=== PATIENT | female | born 1980 | race Caucasian/White ===

== ENCOUNTER 2018-07-25 07:56 | Emergency (ER) | payer BC ==
[~2018-07-25 07:56] MED LIST: ALBUTEROL0.83 MG/ML IH; AMOXICILLIN 50500 MG PO; ATROVENT I0.2 MG/1 M IH; CELEXA40 MG PO; CLONAZEPAM1 M1 PO; CLONAZEPAM1 MG PO; METFORMIN1000 MG PO; MUCINEX 60600 MG/TA1 PO; NO HOME MEDICATIONS; OMEPRAZOLE20 MG PO; PREDNISONE10 M1 PO; SIMVASTATIN20 MG PO
[2018-07-25 08:47] LABS: EOS # 0.2 (0.04-0.40); EOS % 4.3 % (1.0-5.0); HEMATOCRIT 36.2 % (37.0-47.0); MEAN CELL VOLUME 76 fl (78-100); MEAN CORPUSCULAR HGB CONC 30 g/dL (33-37); MEAN PLATELET VOLUME 10.3 fl (7.4-10.4); MONO # 0.6 (0.20-0.80); NEU # 3.8 (1.40-6.50); PLATELET COUNT 272 K/mm3 (130-400); RED BLOOD COUNT 4.74 M/mm3 (4.10-5.30); RED CELL DISTRIBUTION WIDTH 16.1 % (11.5-14.5); WHITE BLOOD COUNT 5.6 K/mm3 (4.8-10.8)
[2018-07-25 08:57] LABS: MEAN CORPUSCULAR HEMOGLOBIN 23 pg (27-31)
[2018-07-25 09:06] LABS: STREP SCREEN NEGATIVE (NEGATIVE)
[2018-07-25 09:06] LABS: ALBUMIN 4.3 g/dL (3.5-5.0); CALCIUM 9.1 mg/dL (8.4-10.2); POTASSIUM 3.6 mmol/L (3.6-5.0); TOTAL BILIRUBIN 0.7 mg/dL (0.2-1.3); TOTAL PROTEIN 7.2 g/dL (6.3-8.2)
[2018-07-25] MEDS ORDERED: RANITIDINE HCL300 M1 PO (09:29)
[2018-07-25] MEDS ORDERED: METFORMIN ER500 MG PO (09:30)
[2018-07-25] MEDS ORDERED: NATURAL IRON65 MG (09:31)
[2018-07-25] MEDS ORDERED: PREDNISONE20 M1 PO (09:32)
[2018-07-25] MEDS ORDERED: AUGMENTIN 875-1 EAC1 PO (09:32)
[2018-07-25 09:55] VITALS: BP 164/83
== END 2018-07-25 09:58 | disposition home or self-care (01) ==
LOC: ED 07:56
PROVIDERS: Nurse Practitioner Primary Care
DX: J45.901 Unspecified asthma with (acute) exacerbation (principal); J06.9 Acute upper respiratory infection, unspecified; B96.89 Other specified bacterial agents as the cause of diseases classified elsewhere; Z79.899 Other long term (current) drug therapy; F41.9 Anxiety disorder, unspecified; F41.0 Panic disorder [episodic paroxysmal anxiety]
CPT/HCPCS: J1885; J2930

== ENCOUNTER 2020-09-12 03:37 | Emergency (ER) | payer BC ==
[~2020-09-12 03:37] MED LIST changes: +AUGMENTIN 875-1 EAC1 PO; +METFORMIN ER500 MG PO; +NATURAL IRON65 MG; +PREDNISONE20 M1 PO; +RANITIDINE HCL300 M1 PO
[2020-09-12] MEDS ORDERED: SIMVASTATIN20 M1 PO (03:49)
[2020-09-12] MEDS ORDERED: PROAIR HFA0.09 MG/AC IH (03:50)
[2020-09-12 04:51] LABS: EOS # 0.2 (0.04-0.40); EOS % 2.7 % (1.0-5.0); HEMATOCRIT 41.8 % (37.0-47.0); HEMOGLOBIN 13.3 g/dL (12.5-16.0); LYMPH# 1.7 (1.50-4.00); MEAN CELL VOLUME 86 fl (78-100); MEAN CORPUSCULAR HEMOGLOBIN 27 pg (27-31); MEAN CORPUSCULAR HGB CONC 32 g/dL (33-37); MEAN PLATELET VOLUME 9.8 fl (7.4-10.4); MONO # 0.7 (0.20-0.80); NEU # 5.2 (1.40-6.50); PLATELET COUNT 267 K/mm3 (130-400); RED BLOOD COUNT 4.86 M/mm3 (4.10-5.30); RED CELL DISTRIBUTION WIDTH 14.8 % (11.5-14.5); WHITE BLOOD COUNT 7.8 K/mm3 (4.8-10.8)
[2020-09-12 05:04] LABS: POTASSIUM 3.8 mmol/L (3.5-5.1); SODIUM 140 mmol/L (136-145)
[2020-09-12 05:06] LABS: CALCIUM 8.8 mg/dL (8.3-10.5); GLUCOSE 114 mg/dL (65-105)
[2020-09-12 05:07] LABS: CARBON DIOXIDE 25 mmol/L (22-29)
[2020-09-12 05:08] LABS: D-DIMER 0.49 mg/L FEU (0.15-0.50)
[2020-09-12 05:19] LABS: TROPONIN-I < 0.03 ng/mL (<0.030)
[2020-09-12] MEDS ORDERED: ZITHROMAX Z PA250 MG PO (05:19)
[2020-09-12] MEDS ORDERED: PREDNISONE20 M1 PO (05:19)
[2020-09-12 05:25] VITALS: BP 151/95
== END 2020-09-12 05:26 | disposition home or self-care (01) ==
LOC: ED 03:37
PROVIDERS: Physician Assistant
DX: J45.909 Unspecified asthma, uncomplicated (principal); F41.9 Anxiety disorder, unspecified; E78.5 Hyperlipidemia, unspecified; Z79.51 Long term (current) use of inhaled steroids; Z79.84 Long term (current) use of oral hypoglycemic drugs; Z79.899 Other long term (current) drug therapy

== ENCOUNTER 2021-05-04 09:18 | Emergency (ER) | payer BC ==
[~2021-05-04] VITALS: Ht 160 cm; Wt 129.5 kg
[~2021-05-04 09:18] MED LIST changes: +PROAIR HFA0.09 MG/AC IH; +SIMVASTATIN40 M1 PO; +ZITHROMAX Z PA250 MG PO
[2021-05-04] MEDS ORDERED: SINGULAIR 110 MG/TAB PO (09:32)
[2021-05-04] MEDS ORDERED: ESOMEPRAZOLE MA40 M1 PO (09:32)
[2021-05-04] MEDS ORDERED: SYMBICORT1 AE3 IH (09:33)
[2021-05-04] MEDS ORDERED: CEPHALEXIN250 MG PO (10:29)
[2021-05-04 10:37] VITALS: BP 144/94
== END 2021-05-04 10:38 | disposition home or self-care (01) ==
LOC: ED 09:18
DX: H66.91 Otitis media, unspecified, right ear (principal); K13.79 Other lesions of oral mucosa; J45.909 Unspecified asthma, uncomplicated; K21.9 Gastro-esophageal reflux disease without esophagitis; Z79.51 Long term (current) use of inhaled steroids; Z79.899 Other long term (current) drug therapy

== ENCOUNTER → 2021-11-17 | Outpatient (CLI) | payer BC ==
[~2021-11-17] MED LIST changes: +CEPHALEXIN250 MG PO; +ESOMEPRAZOLE MA40 M1 PO; +SINGULAIR 110 MG/TAB PO; +SYMBICORT1 AE3 IH
== END ==
LOC: LAB 07:58
DX: J02.9 Acute pharyngitis, unspecified (principal)

== ENCOUNTER → 2023-05-19 | Outpatient (CLI) | payer BC | LOC: RAD 15:53 | DX: M77.32 Calcaneal spur, left foot (principal) ==

== ENCOUNTER → 2023-10-11 | Outpatient (REF) | payer BC | LOC: LAB 11:17 | DX: Z20.822 Contact with and (suspected) exposure to COVID-19 (principal) ==